=== PATIENT | male | born 1955 | race Caucasian/White ===

== ENCOUNTER → 2017-03-18 | Outpatient (CLI) | payer MEDICARE, OTHER ==
[~2017-03-18] MED LIST: ALBU8.5H IH; AMLO-511 PO; ASPI-1093 PO; CARV12 PO; CHOL200018 PO; CLON0.1T PO; HYDR-3971 PO; NITR.4 SL; PRAS10TA6 PO; SIMV40TA5 PO; VITA1CAP PO
== END | disposition home or self-care (01) ==
LOC: RADMN 09:12
PROVIDERS: ATTEND Anesthesiology Pain Medicine
DX: M23.92 Unspecified internal derangement of left knee (principal); M79.4 Hypertrophy of (infrapatellar) fat pad; M25.462 Effusion, left knee
CPT/HCPCS: 73721

== ENCOUNTER 2017-05-23 20:41 | Emergency (ER) | payer MEDICARE, OTHER ==
[~2017-05-23] VITALS: Ht 162.6 cm; Wt 72.0 kg
[2017-05-23] MEDS ORDERED: OxyCODONE HCL/ACETAMINOPHEN 5-325 MG TABLET PO ONE (22:30)
[2017-05-23 22:32] VITALS: BP 123/69
== END 2017-05-24 00:14 | disposition home or self-care (01) ==
LOC: EMS 20:53
DX: M53.3 Sacrococcygeal disorders, not elsewhere classified (principal); G89.29 Other chronic pain; M54.5 Low back pain; I10 Essential (primary) hypertension; Z87.442 Personal history of urinary calculi; Z95.1 Presence of aortocoronary bypass graft; Z79.82 Long term (current) use of aspirin; W07.XXXA Fall from chair, initial encounter; Y93.89 Activity, other specified; Y92.9 Unspecified place or not applicable; Y99.8 Other external cause status
CPT/HCPCS: 72220; 99284

== ENCOUNTER 2017-06-26 18:55 | Emergency (ER) | payer MEDICARE, OTHER ==
[~2017-06-26] VITALS: Ht 162.6 cm; Wt 72.7 kg
[~2017-06-26 18:55] MED LIST changes: -CHOL200018 PO; -PRAS10TA6 PO; -VITA1CAP PO
[2017-06-26] MEDS ORDERED: DIPH12.54 PO (19:00)
[2017-06-26] MEDS ORDERED: AMLO2.5T PO (19:00)
[2017-06-26] MEDS ORDERED: NITR1PAT9 SL (19:00)
[2017-06-26] MEDS ORDERED: HYDR-3971 PO (19:00)
[2017-06-26] MEDS ORDERED: ASPI-556 PO (19:00)
[2017-06-26] MEDS ORDERED: TICA90TA PO (19:00)
[2017-06-26] MEDS ORDERED: CLON.1 PO (19:00)
[2017-06-26] MEDS ORDERED: CARV12 PO (19:00)
[2017-06-26] MEDS ORDERED: SIMV-261 PO (19:00)
[2017-06-26 19:25] LABS: BASOPHILS % (AUTO) 0.8 % (0.0-2.0); EOSINOPHILS % (AUTO) 3.5 % (1.0-6.0); HEMOGLOBIN 15.5 g/dL (13.5-17.5); LYMPHOCYTES # (AUTO) 3.5 K/uL (1.0-4.8); LYMPHOCYTES % (AUTO) 47.4 % (22.0-44.0); MEAN CORPUSCULAR HEMOGLOBIN 31.9 pg (26.0-34.0); MEAN CORPUSCULAR HGB CONC 34.3 G/dL (31.0-37.0); MEAN CORPUSCULAR VOLUME 93 fL (80-100); MONOCYTES # (AUTO) 0.3 K/uL (0.1-1.0); MONOCYTES % (AUTO) 4.4 % (2.0-9.0); NEUTROPHILS # (AUTO) 3.2 K/uL (1.8-7.7); NEUTROPHILS % (AUTO) 43.9 % (40.0-70.0); PLATELET COUNT (AUTO) 158 K/uL (150-450); RED BLOOD CELL COUNT(AUTO) 4.85 MIL/uL (4.50-5.90); RED CELL DISTRIBUTION WIDTH 12.6 % (11.5-14.5); WHITE BLOOD COUNT (AUTO) 7.3 K/uL (4.5-11.0)
[2017-06-26] MEDS ORDERED: KETOROLAC TROMETHAMINE 60 MG/2 ML VIAL IM ONE (19:30)
[2017-06-26] MEDS ORDERED: DIPH25 PO (19:31)
[2017-06-26] MEDS ORDERED: NITR.4 SL (19:31)
[2017-06-26 19:38] LABS: INR 1.1 (0.9-1.1); PROTHROMBIN TIME 11.6 SEC (9.4-11.6)
[2017-06-26 19:40] LABS: ANION GAP 4 mmol/L (8-16); CALCIUM, TOTAL 9.7 mg/dL (8.8-10.5); CARBON DIOXIDE 30 mmol/L (22-29); CHLORIDE 99 mmol/L (98-107); CREATININE 0.92 mg/dL (0.60-1.30); GLOMERULAR FILTR. RATE CALC > 60 mL/min (>60); POTASSIUM 3.9 mmol/L (3.5-5.1); SODIUM SERUM 133 mmol/L (136-145); UREA NITROGEN, BLOOD 10 mg/dL (7-18)
[2017-06-26 19:42] LABS: B-TYPE NATRIURETIC PEPTIDE 24 pg/mL (0-100)
[2017-06-26 20:06] LABS: ALANINE AMINOTRANSFERASE 55 U/L (12-78); ALBUMIN 4.6 g/dL (3.4-5.0); ASPARTATE AMINOTRANSFERASE 27 U/L (15-37); BILIRUBIN,TOTAL 0.5 mg/dL (0.1-1.0); CREATINE KINASE, TOTAL 123 U/L (39-308)
[2017-06-26 20:26] LABS: CREATINE KINASE MB 1.3 ng/mL (0-5)
[2017-06-26] MEDS ORDERED: HYDROCODONE/ACETAMINOPHEN 5-325 MG TABLET PO ONE (20:45)
[2017-06-26 22:47] VITALS: BP 139/81
== END 2017-06-26 22:48 | disposition home or self-care (01) ==
LOC: EMS 18:56
DX: R07.89 Other chest pain (principal); M54.2 Cervicalgia; I10 Essential (primary) hypertension; I20.9 Angina pectoris, unspecified; Z87.442 Personal history of urinary calculi; Z95.1 Presence of aortocoronary bypass graft; Z79.82 Long term (current) use of aspirin
CPT/HCPCS: 36415; 71010; 80053; 82550; 82553; 83880; 84484; 85025; 85610; 85730; 93005; 96372; 99285; J1885

== ENCOUNTER → 2017-07-29 | Outpatient (CLI) | payer MEDICARE, OTHER ==
[~2017-07-29] MED LIST changes: -ALBU8.5H IH; +ALBU8.5H8 IH; -AMLO-511 PO; +AMLO2.5T PO; -ASPI-1093 PO; +ASPI-556 PO; +CLON-570 PO; -CLON0.1T PO; +DIPH25 PO; -HYDR-3971 PO; +HYDR-4069 PO; +SIMV-261 PO; -SIMV40TA5 PO; +TICA90TA PO
== END | disposition home or self-care (01) ==
LOC: RADPV 12:01
PROVIDERS: ATTEND Family Medicine
DX: Z47.89 Encounter for other orthopedic aftercare (principal); S69.91XA Unspecified injury of right wrist, hand and finger(s), initial encounter; X58.XXXA Exposure to other specified factors, initial encounter; Y93.9 Activity, unspecified; Y92.9 Unspecified place or not applicable; Y99.9 Unspecified external cause status

== ENCOUNTER → 2017-09-06 | Outpatient (CLI) | payer MEDICARE, OTHER | END | disposition home or self-care (01) | LOC: RADPV 09:20 | PROVIDERS: ATTEND Anesthesiology Pain Medicine | DX: R07.89 Other chest pain (principal); Z91.81 History of falling | CPT/HCPCS: 71111 ==

== ENCOUNTER 2018-01-23 13:49 | Emergency (ER) | payer MEDICARE, OTHER ==
[~2018-01-23] VITALS: Ht 172.7 cm; Wt 72.7 kg
[2018-01-23 15:12] LABS: APPEARANCE,URINE CLEAR (CLEAR); BILIRUBIN,URINE NEGATIVE (NEGATIVE); GLUCOSE, URINE (UA) NEGATIVE (NEGATIVE); KETONES,URINE NEGATIVE (NEGATIVE); LEUKOCYTE ESTERASE ,URINE NEGATIVE (NEGATIVE); NITRATE,URINE NEGATIVE (NEGATIVE); OCCULT BLOOD,URINE SMALL (NEGATIVE); PROTEIN,URINE NEGATIVE (NEGATIVE); UROBILINOGEN,URINE 0.2 mg/dL (<=1.0)
[2018-01-23] MEDS ORDERED: OxyCODONE HCL/ACETAMINOPHEN 5-325 MG TABLET PO ONE (15:30)
[2018-01-23 16:02] LABS: BACTERIA,URINE Rare /HPF (None Seen); SQUAMOUS EPITHELIAL CELL,UR Rare /LPF (None Seen); WBC,URINE 0-2 /HPF (0-5)
[2018-01-23] MEDS ORDERED: SODIUM CHLORIDE 0.9% 1,000 ML IV ONE (16:15)
[2018-01-23] MEDS ORDERED: KETOROLAC TROMETHAMINE 30 MG/ML VIAL IVP ONE (16:15)
[2018-01-23] MEDS ORDERED: ONDANSETRON HCL 4 MG/2 ML VIAL IVP ONE (16:15)
[2018-01-23] MEDS ORDERED: MORPHINE SULFATE 4 MG/ML SYRINGE IVP ONE (16:15)
[2018-01-23] MEDS ORDERED: TAMSULOSIN HCL 0.4 MG CAPSULE PO ONE (16:15)
[2018-01-23 16:45] VITALS: BP 119/78
[2018-01-23 16:48] LABS: EOSINOPHILS % (AUTO) 3.4 % (1.0-6.0); HEMATOCRIT 44.5 % (41-53); HEMOGLOBIN 15.5 g/dL (13.5-17.5); LYMPHOCYTES # (AUTO) 2.8 K/uL (1.0-4.8); LYMPHOCYTES % (AUTO) 42.6 % (22.0-44.0); MEAN CORPUSCULAR HGB CONC 34.8 G/dL (31.0-37.0); MEAN CORPUSCULAR VOLUME 92 fL (80-100); MONOCYTES # (AUTO) 0.3 K/uL (0.1-1.0); MONOCYTES % (AUTO) 4.7 % (2.0-9.0); NEUTROPHILS # (AUTO) 3.2 K/uL (1.8-7.7); NEUTROPHILS % (AUTO) 48.3 % (40.0-70.0); PLATELET COUNT (AUTO) 153 K/uL (150-450); RED BLOOD CELL COUNT(AUTO) 4.82 MIL/uL (4.50-5.90); RED CELL DISTRIBUTION WIDTH 12.6 % (11.5-14.5)
[2018-01-23 17:07] LABS: ANION GAP 6 mmol/L (8-16); CALCIUM, TOTAL 9.5 mg/dL (8.8-10.5); CARBON DIOXIDE 29 mmol/L (22-29); CHLORIDE 100 mmol/L (98-107); CREATININE 0.79 mg/dL (0.60-1.30); GLOMERULAR FILTR. RATE CALC > 60 mL/min (>60); GLUCOSE,RANDOM 103 mg/dL (70-110); POTASSIUM 4.4 mmol/L (3.5-5.1); SODIUM SERUM 135 mmol/L (136-145); UREA NITROGEN, BLOOD 9 mg/dL (7-18)
[2018-01-23 17:14] LABS: ALANINE AMINOTRANSFERASE 68 U/L (12-78); ALBUMIN 4.5 g/dL (3.4-5.0); ALKALINE PHOSPHATASE 83 U/L (46-116); ASPARTATE AMINOTRANSFERASE 35 U/L (15-37); BILIRUBIN,TOTAL 0.4 mg/dL (0.1-1.0)
== END 2018-01-23 18:17 | disposition home or self-care (01) ==
LOC: EMS 13:52
DX: R31.29 Other microscopic hematuria (principal); M54.5 Low back pain; I25.10 Atherosclerotic heart disease of native coronary artery without angina pectoris; I10 Essential (primary) hypertension; E78.00 Pure hypercholesterolemia, unspecified
CPT/HCPCS: 36415; 74176; 80053; 81001; 85025; 96361; 96374; 96375; 99285; J1885; J2270; J2405; J7030

== ENCOUNTER 2018-02-28 09:43 | Inpatient (IN) | payer MEDICARE, OTHER ==
[~2018-02-28] VITALS: Ht 167.6 cm; Wt 77.3 kg
[2018-02-28 10:35] LABS: APPEARANCE,URINE CLEAR (CLEAR); BILIRUBIN,URINE NEGATIVE (NEGATIVE); GLUCOSE, URINE (UA) NEGATIVE (NEGATIVE); KETONES,URINE NEGATIVE (NEGATIVE); LEUKOCYTE ESTERASE ,URINE NEGATIVE (NEGATIVE); NITRATE,URINE NEGATIVE (NEGATIVE); OCCULT BLOOD,URINE MODERATE (NEGATIVE); PH,URINE 5.5 (5.0-8.0); PROTEIN,URINE NEGATIVE (NEGATIVE); UROBILINOGEN,URINE 0.2 mg/dL (<=1.0)
[2018-02-28 10:37] LABS: BASOPHILS % (AUTO) 0.9 % (0.0-2.0); EOSINOPHILS % (AUTO) 2.4 % (1.0-6.0); HEMATOCRIT 43.6 % (41-53); HEMOGLOBIN 14.9 g/dL (13.5-17.5); LYMPHOCYTES # (AUTO) 2.8 K/uL (1.0-4.8); LYMPHOCYTES % (AUTO) 48.6 % (22.0-44.0); MEAN CORPUSCULAR HEMOGLOBIN 31.9 pg (26.0-34.0); MEAN CORPUSCULAR HGB CONC 34.2 G/dL (31.0-37.0); MEAN CORPUSCULAR VOLUME 93 fL (80-100); MONOCYTES # (AUTO) 0.3 K/uL (0.1-1.0); MONOCYTES % (AUTO) 5.6 % (2.0-9.0); NEUTROPHILS # (AUTO) 2.5 K/uL (1.8-7.7); NEUTROPHILS % (AUTO) 42.5 % (40.0-70.0); PLATELET COUNT (AUTO) 146 K/uL (150-450); RED BLOOD CELL COUNT(AUTO) 4.68 MIL/uL (4.50-5.90); RED CELL DISTRIBUTION WIDTH 12.6 % (11.5-14.5)
[2018-02-28 10:41] LABS: PROTHROMBIN TIME 10.8 SEC (9.4-11.6)
[2018-02-28 10:44] LABS: ANION GAP 6 mmol/L (8-16); CALCIUM, TOTAL 9.6 mg/dL (8.8-10.5); CARBON DIOXIDE 29 mmol/L (22-29); CHLORIDE 105 mmol/L (98-107); CREATININE 0.85 mg/dL (0.60-1.30); GLOMERULAR FILTR. RATE CALC > 60 mL/min (>60); GLUCOSE,RANDOM 92 mg/dL (70-110); POTASSIUM 4.5 mmol/L (3.5-5.1); SODIUM SERUM 140 mmol/L (136-145); UREA NITROGEN, BLOOD 13 mg/dL (7-18)
[2018-02-28 10:44] LABS: BACTERIA,URINE None Seen /HPF (None Seen); WBC,URINE None Seen /HPF (0-5)
[2018-02-28 10:51] LABS: ALANINE AMINOTRANSFERASE 51 U/L (12-78); ALBUMIN 4.3 g/dL (3.4-5.0); ALKALINE PHOSPHATASE 72 U/L (46-116); ASPARTATE AMINOTRANSFERASE 21 U/L (15-37); BILIRUBIN,TOTAL 0.5 mg/dL (0.1-1.0); TOTAL PROTEIN, SERUM 7.7 g/dL (6.4-8.2)
[2018-02-28] MEDS ORDERED: MORPHINE SULFATE 4 MG/ML SYRINGE IVP ONE ×2 (11:30→12:30)
[2018-02-28] MEDS ORDERED: ONDANSETRON HCL 4 MG/2 ML VIAL IVP ONE (11:30)
[2018-02-28] MEDS ORDERED: PHENAZOPYRIDINE HCL 100 MG TABLET PO ONE (12:15)
[2018-02-28] MEDS ORDERED: CIPROFLOXACIN HCL 250 MG TABLET PO ONE (12:15)
[2018-02-28] MEDS ORDERED: TAMSULOSIN HCL 0.4 MG CAPSULE PO ONE (12:15)
[2018-02-28] MEDS ORDERED: 0.9% SODIUM CHLORIDE 10 ML SYRINGE IVP PRN (14:45)
[2018-02-28] MEDS ORDERED: ACETAMINOPHEN 325 MG TABLET PO PRN (14:45)
[2018-02-28] MEDS ORDERED: ONDANSETRON HCL 4 MG/2 ML VIAL IVP PRN ×2 (14:45→17:30)
[2018-02-28 15:00] VITALS: BP 143/91
[2018-02-28] MEDS ORDERED: NITROGLYCERIN 0.4 MG SUBLINGUAL TABLET #25 SL PRN (17:30)
[2018-02-28] MEDS ORDERED: DiphenhydrAMINE HCL 25 MG CAPSULE PO PRN (17:30)
[2018-02-28] MEDS ORDERED: HYDROCODONE/ACETAMINOPHEN 10-325 MG TABLET PO PRN (17:30)
[2018-02-28] MEDS ORDERED: ALBUTEROL SULFATE HFA 90 MCG/PUFF 8 GM INHALER IH PRN (17:30)
[2018-02-28] MEDS: MORPHINE SULFATE 4 MG/ML SYRINGE IVP PRN ×2 (17:57→22:05)
[2018-02-28 20:09] VITALS: BP 142/74
[2018-02-28] MEDS: CloNIDine HCL 0.1 MG TABLET PO SCH (20:24)
[2018-02-28] MEDS: SIMVASTATIN 40 MG TABLET PO SCH (20:24)
[2018-02-28] MEDS: CARVEDILOL 12.5 MG TABLET PO SCH (20:25)
[2018-02-28] MEDS: TICAGRELOR 90 MG TABLET PO SCH (20:25)
[2018-02-28] MEDS: TAMSULOSIN HCL 0.4 MG CAPSULE PO SCH (22:03)
[2018-02-28] MEDS: DEXTROSE 5%-0.9% SODIUM CHL 1,000 ML IV SCH (22:05)
[2018-02-28 23:52] VITALS: BP 129/81
[2018-03-01] MEDS: MORPHINE SULFATE 4 MG/ML SYRINGE IVP PRN ×5 (03:13→20:32)
[2018-03-01 04:33] VITALS: BP 109/61
[2018-03-01 06:18] LABS: BASOPHILS % (AUTO) 0.4 % (0.0-2.0); EOSINOPHILS % (AUTO) 2.3 % (1.0-6.0); HEMOGLOBIN 14.4 g/dL (13.5-17.5); LYMPHOCYTES # (AUTO) 2.5 K/uL (1.0-4.8); LYMPHOCYTES % (AUTO) 43.9 % (22.0-44.0); MEAN CORPUSCULAR HEMOGLOBIN 32.6 pg (26.0-34.0); MEAN CORPUSCULAR HGB CONC 35.2 G/dL (31.0-37.0); MEAN CORPUSCULAR VOLUME 93 fL (80-100); MONOCYTES # (AUTO) 0.3 K/uL (0.1-1.0); MONOCYTES % (AUTO) 5.3 % (2.0-9.0); NEUTROPHILS # (AUTO) 2.7 K/uL (1.8-7.7); NEUTROPHILS % (AUTO) 48.1 % (40.0-70.0); PLATELET COUNT (AUTO) 129 K/uL (150-450); RED BLOOD CELL COUNT(AUTO) 4.43 MIL/uL (4.50-5.90); RED CELL DISTRIBUTION WIDTH 13.1 % (11.5-14.5)
[2018-03-01 07:21] LABS: ALANINE AMINOTRANSFERASE 46 U/L (12-78); ALBUMIN 3.7 g/dL (3.4-5.0); ALKALINE PHOSPHATASE 62 U/L (46-116); ANION GAP 9 mmol/L (8-16); ASPARTATE AMINOTRANSFERASE 21 U/L (15-37); BILIRUBIN,TOTAL 0.4 mg/dL (0.1-1.0); CARBON DIOXIDE 28 mmol/L (22-29); CHLORIDE 104 mmol/L (98-107); CREATININE 0.87 mg/dL (0.60-1.30); GLOMERULAR FILTR. RATE CALC > 60 mL/min (>60); GLUCOSE,RANDOM 120 mg/dL (70-110); POTASSIUM 3.8 mmol/L (3.5-5.1); SODIUM SERUM 141 mmol/L (136-145); TOTAL PROTEIN, SERUM 6.8 g/dL (6.4-8.2); UREA NITROGEN, BLOOD 13 mg/dL (7-18)
[2018-03-01] MEDS: DEXTROSE 5%-0.9% SODIUM CHL 1,000 ML IV SCH ×2 (07:26→17:59)
[2018-03-01 08:19] VITALS: BP 132/79
[2018-03-01] MEDS: AmLODIPine BESYLATE 5 MG TABLET PO SCH (09:03)
[2018-03-01] MEDS: TICAGRELOR 90 MG TABLET PO SCH ×3 (09:03→21:00)
[2018-03-01] MEDS: ASPIRIN 81 MG EC TABLET PO SCH (09:04)
[2018-03-01] MEDS: TAMSULOSIN HCL 0.4 MG CAPSULE PO SCH ×2 (09:04→20:31)
[2018-03-01] MEDS: CARVEDILOL 12.5 MG TABLET PO SCH ×2 (09:04→20:33)
[2018-03-01 11:48] VITALS: BP 122/73
[2018-03-01 16:02] VITALS: BP 123/72
[2018-03-01 19:42] VITALS: BP 131/76
[2018-03-01] MEDS: SIMVASTATIN 40 MG TABLET PO SCH (20:32)
[2018-03-01] MEDS: CloNIDine HCL 0.1 MG TABLET PO SCH (20:32)
[2018-03-01 23:25] VITALS: BP 121/79
[2018-03-02] MEDS: MORPHINE SULFATE 4 MG/ML SYRINGE IVP PRN ×2 (00:28→05:30)
[2018-03-02] MEDS: DEXTROSE 5%-0.9% SODIUM CHL 1,000 ML IV SCH (03:56)
[2018-03-02] MEDS ORDERED: RINGERS SOLUTION,LACTATED 1,000 ML IV ONE ×2 (06:00→08:08)
[2018-03-02 07:47] VITALS: BP 119/75
[2018-03-02] MEDS ORDERED: SODIUM CL IRRIG SOLN BAG 3,000 ML IRRIG ONE (08:53)
[2018-03-02] MEDS ORDERED: IOHEXOL 240 MG/ML 20 ML VIAL ONE (08:54)
[2018-03-02] MEDS: TAMSULOSIN HCL 0.4 MG CAPSULE PO SCH (09:00)
[2018-03-02] MEDS: CARVEDILOL 12.5 MG TABLET PO SCH (09:00)
[2018-03-02] MEDS: ASPIRIN 81 MG EC TABLET PO SCH (09:00)
[2018-03-02] MEDS: TICAGRELOR 90 MG TABLET PO SCH (09:00)
[2018-03-02] MEDS: AmLODIPine BESYLATE 5 MG TABLET PO SCH (09:00)
[2018-03-02] MEDS ORDERED: MEPERIDINE-PF 25 MG/ML SYRINGE IVP PRN (11:45)
[2018-03-02] MEDS ORDERED: HYDROmorphone 2 MG/ML SYRINGE IVP PRN (11:45)
[2018-03-02] MEDS ORDERED: FentaNYL CITRATE-PF 100 MCG/2 ML VIAL IVP ONE (12:00)
[2018-03-02] MEDS ORDERED: MIDAZOLAM HCL 2 MG/2 ML VIAL IVP ONE (12:00)
[2018-03-02] MEDS ORDERED: FentaNYL CITRATE-PF 100 MCG/2 ML VIAL ONE (12:01)
[2018-03-02] MEDS: FentaNYL CITRATE-PF 100 MCG/2 ML VIAL IVP PRN ×2 (12:03→12:07)
[2018-03-02 12:44] VITALS: BP 125/77
[2018-03-02 15:38] VITALS: BP 121/78
[2018-03-02] MEDS ORDERED: TAMS0.4C32 PO (16:52)
[2018-03-02] MEDS ORDERED: HYDR-305 PO (16:54)
[2018-03-02] MEDS ORDERED: LIDOCAINE HCL/PF 2% 5 ML SYRINGE IVP ONE (18:29)
[2018-03-02] MEDS ORDERED: PROPOFOL 1% 20 ML VIAL IVP ONE (18:29)
[2018-03-02] MEDS ORDERED: OXYGEN THERAPY IH SCH (20:00)
== END 2018-03-02 18:30 | disposition home or self-care (01) | DRG 694 ==
LOC: EDUNIT# 09:43 → EMS 09:44 → 4E 13:55
PROVIDERS: ADMIT Hospitalist; ATTEND Hospitalist
PROC: BT141ZZ Fluoroscopy of Kidneys, Ureters and Bladder using Low Osmolar Contrast (ICD-10-PCS; 2018-03-02)
PROC: 0TJB8ZZ Inspection of Bladder, Via Natural or Artificial Opening Endoscopic (ICD-10-PCS; principal; 2018-03-02 09:00)
DX: N13.2 Hydronephrosis with renal and ureteral calculous obstruction (principal); K76.0 Fatty (change of) liver, not elsewhere classified; E78.00 Pure hypercholesterolemia, unspecified; I10 Essential (primary) hypertension; N40.0 Benign prostatic hyperplasia without lower urinary tract symptoms; I25.10 Atherosclerotic heart disease of native coronary artery without angina pectoris; K59.00 Constipation, unspecified; N21.0 Calculus in bladder; Z87.442 Personal history of urinary calculi; Z95.5 Presence of coronary angioplasty implant and graft; Z95.1 Presence of aortocoronary bypass graft
CPT/HCPCS: 74176; 93005; J2250; J2270; J2405; J2704; J3010; J3490; J7042; J7120; Q9966

== ENCOUNTER → 2019-07-19 | Outpatient (CLI) | payer MEDICARE, OTHER ==
[~2019-07-19] MED LIST changes: -ALBU8.5H8 IH; -AMLO2.5T PO; +AMLO2.5T4 PO; -DIPH25 PO; +GABA-531 PO; -HYDR-4069 PO; +HYDR-4455 PO; -NITR.4 SL; +NITR0.4T52 SL; +TAMS-1 PO
== END | disposition home or self-care (01) ==
LOC: RADPV 10:06
PROVIDERS: ATTEND Legal Medicine
DX: M25.442 Effusion, left hand (principal)

== ENCOUNTER → 2019-07-23 | Outpatient (CLI) | payer MEDICARE, OTHER | END | disposition home or self-care (01) | LOC: RADMN 08:48 | PROVIDERS: ATTEND Legal Medicine | DX: S60.552A Superficial foreign body of left hand, initial encounter (principal); X58.XXXA Exposure to other specified factors, initial encounter; Y93.89 Activity, other specified; Y92.89 Other specified places as the place of occurrence of the external cause; Y99.8 Other external cause status | CPT/HCPCS: 73218 ==

== ENCOUNTER → 2019-08-01 | Outpatient (CLI) | payer MEDICARE, OTHER ==
[~2019-08-01] MED LIST changes: -CLON-570 PO; +CLON0.1T2 PO; +IOVERSOL 350 MG/ML 100 ML VIAL ONE
== END | disposition home or self-care (01) ==
LOC: RADMN 09:00
PROVIDERS: ATTEND Legal Medicine
DX: K57.30 Diverticulosis of large intestine without perforation or abscess without bleeding (principal); R16.0 Hepatomegaly, not elsewhere classified; K76.89 Other specified diseases of liver; N28.89 Other specified disorders of kidney and ureter
CPT/HCPCS: 74178; Q9967

== ENCOUNTER → 2019-08-13 | Outpatient (CLI) | payer MEDICARE, OTHER ==
[~2019-08-13] MED LIST changes: +CLON-570 PO; -CLON0.1T2 PO; -IOVERSOL 350 MG/ML 100 ML VIAL ONE; +IOVERSOL 350 MG/ML 150 ML VIAL ONE; +SODIUM CHLORIDE 0.9% 100 ML ONE
== END | disposition home or self-care (01) ==
LOC: RADMN 10:01
PROVIDERS: ATTEND Legal Medicine
DX: K57.90 Diverticulosis of intestine, part unspecified, without perforation or abscess without bleeding (principal); R16.0 Hepatomegaly, not elsewhere classified
CPT/HCPCS: 74177; J7050; Q9967

== ENCOUNTER → 2020-07-22 | Outpatient (CLI) | payer MEDICARE, OTHER ==
[~2020-07-22] MED LIST changes: -AMLO2.5T4 PO; +AMLO2.5T96 PO; -CLON-570 PO; +CLON0.1T83 PO; +GABA-1181 PO; -GABA-531 PO; +IOVERSOL 320 MG/ML 100 ML VIAL ONE; -IOVERSOL 350 MG/ML 150 ML VIAL ONE
== END | disposition home or self-care (01) ==
LOC: RADMN 08:54
PROVIDERS: ATTEND Legal Medicine
DX: R16.0 Hepatomegaly, not elsewhere classified (principal); N28.1 Cyst of kidney, acquired
CPT/HCPCS: 74177; J7050; Q9967

== ENCOUNTER 2023-06-03 14:12 | Emergency (ER) | payer MEDICARE, OTHER ==
[~2023-06-03] VITALS: Ht 167.6 cm; Wt 68.6 kg
[~2023-06-03 14:12] MED LIST changes: +CLON0.1T2 PO; -CLON0.1T83 PO; -IOVERSOL 320 MG/ML 100 ML VIAL ONE; -SODIUM CHLORIDE 0.9% 100 ML ONE
[2023-06-03 14:17] VITALS: TEMP 98.2
[2023-06-03 14:36] LABS: GLUCOMETER DEV NAME(LOC) ERT.5
[2023-06-03] MEDS ORDERED: IBUPROFEN 600 MG TABLET PO ONE (16:15)
[2023-06-03] MEDS ORDERED: KETOROLAC TROMETHAMINE 30 MG/ML VIAL IM ONE (16:15)
[2023-06-03 17:27] VITALS: BP 147/84; PULSE 79; RESP 15
[2023-06-03] MEDS ORDERED: IBUP-1506 PO (17:51)
== END 2023-06-03 18:05 | disposition still patient (30) ==
LOC: EMS 14:12
DX: M25.511 Pain in right shoulder (principal); I25.119 Atherosclerotic heart disease of native coronary artery with unspecified angina pectoris; I10 Essential (primary) hypertension; E78.00 Pure hypercholesterolemia, unspecified; Z98.890 Other specified postprocedural states; Z91.040 Latex allergy status
CPT/HCPCS: 99283; 82962; 73030; 96372; J1885

== ENCOUNTER 2025-01-20 02:17 | Emergency (ER) | payer MEDICARE, MEDICAID ==
[~2025-01-20] VITALS: Ht 165.1 cm; Wt 80.0 kg
[~2025-01-20 02:17] MED LIST changes: +IBUP-1506 PO; -TAMS-1 PO; +TAMS-55 PO
[2025-01-20 02:41] LABS: GLUCOMETER DEV NAME(LOC) ERT.6; GLUCOSE,POINT OF CARE 150 MG/DL (70-110)
[2025-01-20] MEDS: ACETAMINOPHEN 500 MG TABLET PO ONE (03:45)
[2025-01-20] MEDS: METHOCARBAMOL 500 MG TABLET PO ONE (03:45)
[2025-01-20] MEDS: LIDOCAINE 5% TRANSDERMAL PATCH TD ONE (03:46)
[2025-01-20] MEDS: OxyCODONE HCL 5 MG IR TABLET PO ONE (03:46)
[2025-01-20] MEDS: KETOROLAC TROMETHAMINE 30 MG/ML VIAL IM ONE (03:46)
[2025-01-20 05:15] VITALS: BP 135/71; PULSE 75; RESP 18; TEMP 97.3; O2SAT 100
== END 2025-01-20 05:22 | disposition home or self-care (01) ==
LOC: EMS 02:17
DX: G89.29 Other chronic pain (principal); M54.50 Low back pain, unspecified; E78.00 Pure hypercholesterolemia, unspecified; I10 Essential (primary) hypertension; R73.9 Hyperglycemia, unspecified; Z79.02 Long term (current) use of antithrombotics/antiplatelets; Z79.82 Long term (current) use of aspirin; Z79.899 Other long term (current) drug therapy; Z87.442 Personal history of urinary calculi; Z91.041 Radiographic dye allergy status; Z95.1 Presence of aortocoronary bypass graft
CPT/HCPCS: 99284; 82962; 96372; J1885

== ENCOUNTER 2025-03-05 18:16 | Emergency (ER) | payer MEDICARE, MEDICAID | END 2025-03-05 20:25 | disposition left against medical advice (07) | LOC: EMS 18:18 | DX: Z53.21 Procedure and treatment not carried out due to patient leaving prior to being seen by health care provider (principal) ==